=== PATIENT | female | born 1960 | race Two or more races ===

== ENCOUNTER 2023-06-25 17:43 | Emergency (ER) | payer OTHER ==
[~2023-06-25] VITALS: Ht 160 cm; Wt 67.1 kg
[2023-06-25] MEDS ORDERED: LEVOTHYROXINE25 MCG PO (17:48)
[2023-06-25] MEDS ORDERED: ATORVASTATIN CA10 MG PO (17:48)
[2023-06-25] MEDS ORDERED: TRELEGY ELLIPT1 EACH IH (17:49)
[2023-06-25] MEDS ORDERED: DICLOFENAC SODI75 MG PO (21:37)
== END 2023-06-25 21:56 | disposition home or self-care (01) ==
LOC: ER 17:44
DX: S90.32XA Contusion of left foot, initial encounter (principal); S90.122A Contusion of left lesser toe(s) without damage to nail, initial encounter; X58.XXXA Exposure to other specified factors, initial encounter; Y93.89 Activity, other specified; Y92.89 Other specified places as the place of occurrence of the external cause; Y99.9 Unspecified external cause status; E11.9 Type 2 diabetes mellitus without complications; I10 Essential (primary) hypertension; Z87.09 Personal history of other diseases of the respiratory system
CPT/HCPCS: 73610; 73630; 73660; 96372; 99284; J1885

== ENCOUNTER 2024-03-11 09:35 | Outpatient (CLI) | payer OTHER ==
[~2024-03-11 09:35] MED LIST: ATORVASTATIN CA10 MG PO; DICLOFENAC SODI75 MG PO; LEVOTHYROXINE25 MCG PO; TRELEGY ELLIPT1 EACH IH
[2024-03-11 10:45] LABS: HEMATOCRIT 40.6 % (36.0-45.00); HEMOGLOBIN 13.9 g/dL (12.0-15.00); MEAN CELL VOLUME 88.5 fL (80.00-100.00); MEAN CORPUSCULAR HEMOGLOBIN 30.3 pg (27.00-32.0); MEAN CORPUSCULAR HGB CONC 34.2 g/dl (32.0-36.0); PLATELET COUNT 284 K/uL (150-450); RED BLOOD COUNT 4.59 M/uL (4.00-6.00); RED CELL DISTRIBUTION WIDTH 13.8 % (11.5-14.5)
[2024-03-11 11:02] LABS: INR 1.02; PARTIAL THROMBOPLASTIN TIME 32.6 SECONDS (22.0-34.0); PROTHROMBIN TIME 11.1 SECONDS (9.0-11.5)
[2024-03-11 11:26] LABS: % SATURACION 40.5 % (15-50); ALBUMIN 3.8 gm/dL (3.4-5.0); BILIRUBIN TOTAL 0.48 mg/dL (0.3-1.2); CREATININE SERUM 0.7 mg/dL (0.55-1.02); FERRITIN 77.3 NG/ML (8-252); GFR 85.07; GLOBULINA 3.5 G/DL (2.4-3.5); POTASSIUM 3.8 mEq/L (3.5-5.1); T4 FREE 1.35 NG/ML (0.76-1.46); TOTAL PROTEIN 7.3 gm/dL (6.4-8.2); TSH 0.9 uIU/mL (0.358-3.74)
[2024-03-11 11:48] LABS: COL EPI 24 SECONDS (82-175)
[2024-03-11 11:53] LABS: MANUAL PLATELET COUNT 382
[2024-03-11 11:54] LABS: PLATELET ESTIMATE NORMAL (NORMAL)
[2024-03-11 11:58] LABS: FOLIC ACID 19.34 ng/ml (4.78-20)
[2024-03-12 09:11] LABS: ANTI THYROID PEROXIDASE 160 IU/mL (0-34)
[2024-03-12 11:07] LABS: TRANSFERIN 269 mg/dL (192-364)
== END 2024-03-11 09:36 | disposition home or self-care (01) ==
LOC: LAB 09:35
PROVIDERS: ATTEND Internal Medicine Hematology & Oncology
DX: D68.32 Hemorrhagic disorder due to extrinsic circulating anticoagulants (principal); E78.2 Mixed hyperlipidemia; E03.2 Hypothyroidism due to medicaments and other exogenous substances; E05.90 Thyrotoxicosis, unspecified without thyrotoxic crisis or storm; J45.998 Other asthma; D50.8 Other iron deficiency anemias; R79.9 Abnormal finding of blood chemistry, unspecified; I10 Essential (primary) hypertension; R74.02 Elevation of levels of lactic acid dehydrogenase [LDH]; K76.89 Other specified diseases of liver; D51.1 Vitamin B12 deficiency anemia due to selective vitamin B12 malabsorption with proteinuria; E03.8 Other specified hypothyroidism; D68.8 Other specified coagulation defects; E56.1 Deficiency of vitamin K; D69.1 Qualitative platelet defects

== ENCOUNTER 2024-12-22 08:19 | Outpatient (CLI) | payer OTHER ==
[2024-12-23 15:08] LABS: ANTI CARDIO IGA < 9 APL U/mL (0-11); ANTI CARDIO IGG < 9 GPL U/mL (0-14); ANTI CARDIO IGM 9 MPL U/mL (0-12)
[2024-12-24 15:12] LABS: PROTEIN C ACTIVITY 146 % (73-180)
[2024-12-24 17:08] LABS: ANTI-THROMBIN III 105 % (75-135); PROTEIN S ACTIVITY 85 % (63-140)
== END 2024-12-22 08:24 | disposition home or self-care (01) ==
LOC: LAB 08:19
PROVIDERS: ATTEND Internal Medicine Hematology & Oncology
DX: D51.0 Vitamin B12 deficiency anemia due to intrinsic factor deficiency (principal); D68.32 Hemorrhagic disorder due to extrinsic circulating anticoagulants; E78.2 Mixed hyperlipidemia; E03.2 Hypothyroidism due to medicaments and other exogenous substances; E05.90 Thyrotoxicosis, unspecified without thyrotoxic crisis or storm; J45.998 Other asthma; R42 Dizziness and giddiness; D32.9 Benign neoplasm of meninges, unspecified; D68.61 Antiphospholipid syndrome